=== PATIENT | male | born 1990 | race Caucasian/White ===

== ENCOUNTER 2016-11-20 19:03 | Emergency (ER) | payer OTHER ==
[~2016-11-20] VITALS: Ht 182.9 cm; Wt 82.0 kg
[2016-11-20] MEDS ORDERED: ONDANSETRON 2MG/ML, 2ML ONE (19:25)
[2016-11-20] MEDS ORDERED: MORPHINE SULFATE 4 MG/ML, 1ML ONE ×3 (19:25→23:05)
[2016-11-20] MEDS: MORPHINE SULFATE 4 MG/ML, 1ML IVPush PRN ×2 (19:29→20:17)
[2016-11-20] MEDS ORDERED: ONDANSETRON 2MG/ML, 2ML IVPush ONE (19:30)
[2016-11-20] MEDS ORDERED: PLEASE ENTER ALLERGIES MC SCH ×2 (19:30)
[2016-11-20] MEDS ORDERED: SODIUM CHLORIDE 0.9% 1,000ML IVBOLUS ONE (19:30)
[2016-11-20 19:45] LABS: HEMATOCRIT 47.4 % (39.2-51.8); WHITE BLOOD COUNT 11.9 x10^3/uL (3.4-10)
[2016-11-20 19:53] LABS: ASPARTATE AMINO TRANSFERASE 22 U/L (15-37); BLOOD UREA NITROGEN 15 mg/dL (7-18)
[2016-11-20] MEDS ORDERED: OMNIPAQUE 350 MG/ML, 100ML BOTTLE ONE (20:46)
[2016-11-20] MEDS ORDERED: DIAZEPAM 5 MG/ML, 2ML IVPush STA (20:59)
[2016-11-20] MEDS ORDERED: DIAZEPAM 5 MG/ML, 2ML ONE (21:05)
[2016-11-20] MEDS ORDERED: morphine SULFATE 10 MG/ML, 1ML IVPush ONE (23:30)
[2016-11-21 00:21] VITALS: BP 124/74
== END 2016-11-21 00:23 | disposition home or self-care (01) ==
LOC: ED 20:40
DX: S22.089A Unspecified fracture of T11-T12 vertebra, initial encounter for closed fracture (principal); V89.2XXA Person injured in unspecified motor-vehicle accident, traffic, initial encounter; Y93.89 Activity, other specified; Y92.488 Other paved roadways as the place of occurrence of the external cause; Y99.8 Other external cause status
CPT/HCPCS: 36415; 70450; 71010; 72125; 72128; 72131; 74177; 80053; 85025; 86850; 86900; 93005; 96361; 96374; 96375; 96376; 99285; J2270; J2405; J3360; J7030; Q9967

== ENCOUNTER → 2016-11-29 | Outpatient (CLI) | payer OTHER | END | disposition home or self-care (01) | LOC: CFH 15:58 | PROVIDERS: ATTEND Physician Assistant | DX: S22.081A Stable burst fracture of T11-T12 vertebra, initial encounter for closed fracture (principal); X58.XXXA Exposure to other specified factors, initial encounter; Y93.89 Activity, other specified; Y92.89 Other specified places as the place of occurrence of the external cause; Y99.8 Other external cause status | CPT/HCPCS: 72128 ==

== ENCOUNTER → 2017-01-15 | Outpatient (CLI) | payer OTHER | END | disposition home or self-care (01) | LOC: CFH 15:10 | PROVIDERS: ATTEND Physician Assistant | DX: S22.089D Unspecified fracture of T11-T12 vertebra, subsequent encounter for fracture with routine healing (principal); X58.XXXD Exposure to other specified factors, subsequent encounter | CPT/HCPCS: 72128 ==

== ENCOUNTER → 2017-05-22 | Outpatient (CLI) | payer OTHER | LOC: CFH 10:58 | PROVIDERS: ATTEND Physician Assistant | DX: S22.081S Stable burst fracture of T11-T12 vertebra, sequela (principal); G89.29 Other chronic pain; X58.XXXS Exposure to other specified factors, sequela | CPT/HCPCS: 72110 ==